=== PATIENT | male | born 2005 | race Caucasian/White ===

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

== ENCOUNTER 2025-01-16 16:11 | Emergency (ER) | payer BC, MEDICAID ==
[~2025-01-16] VITALS: Ht 167.6 cm; Wt 104.0 kg
[~2025-01-16 16:11] MED LIST changes: +CYCL-1 PO; +LIDO700A32 TD
[2025-01-16 16:21] VITALS: BP 125/69; PULSE 83; RESP 18; TEMP 97.6; O2SAT 97
[2025-01-16] MEDS ORDERED: IBUP-1984 PO (18:20)
[2025-01-16] MEDS ORDERED: DOXY100C43 PO (18:20)
--- NOTE | 2025-01-16 18:24 | Physician Documentation ---
History of Present Illness General Chief Complaint: Toe pain Stated Complaint: INGROWN R TOENAIL Time Seen by MD: 16:27 Primary Medical Doctor: Daniel [facility] History of Present Illness Initial Comments 19-year-old male who presents to the emergency department for evaluation of ingrown toenail with infection. Reports today cut his nails too short. He has a history of reoccurring infections that normally resolve on their own. He has medial and lateral ingrown toenails of the right great toe. He has a mild antalgic gait. Medication Reconciliation Allergies: Coded Allergies: No Known Allergies (Unverified , 07/05/24) Scheduled Cyclobenzaprine* (Cyclobenzaprine*), 1 TAB PO HS Lidocaine (Lidoderm), 1 PATCH TD DAILY Scheduled PRN Hydrocodone/Acetaminophen (Ada 5-325 Tablet), 1 TAB PO Q4H PRN for moderate pain 4-6 Miscellaneous Medications Home Med List (No Home Medications), (Reported) Past Medical History Past Medical History: No Pertinent History Past Surgical History: noncontributory Alcohol Use: None Drug Use: none Lives with: Family Lives In: Home Review of Systems All Other Systems at this time: Reviewed and Negative Constitutional: Denies: fever, chills Musculoskeletal Right great toenail ingrown Physical Exam Physical Exam Vital Signs: RN Vital Signs have been reviewed: Yes, Temperature: 97.6, Source: Temporal, Heart Rate: 83, Respiratory Rate: 18, BP: 125/69, Pulse Oximetry: 97, Weight: 104.050 Oxygen Flow Rate: 0 General Appearance: alert, WD/WN, mild distress Head: normal inspection Face: normal inspection Pupils/EOM/Fundus: PERRLA Neck: non-tender Respiratory: no respiratory distress Chest: no accessory muscle use Extremities: other (Right great medial and lateral nail inflammation, erythema swelling) Neurologic: oriented x4 Motor / Sensory: no motor deficit, no sensory deficit Psychiatric: normal mood/affect Skin: normal color, warm/dry Lymphatic: no adenopathy Progress Results/Orders Results/Orders Vital Signs 01/16/25 16:21 Temp 97.6 Pulse 83 Resp 18 B/P (MAP) 125/69 Pulse Ox 97 O2 Flow Rate 0 Medical Decision Making Differential Diagnosis 19-year-old male who has reoccurring right great ingrown toenail infections. He has never had antibiotic coverage. Reports that normally the inflammation infections resolve on their own. Patient has medial and lateral nail periodic use. Plan is to begin antibiotics for 10 days and anti-inflammatory medicine. That is to be followed up with a medial 3rd nail removal. With the nail was grown back to full with again then the lateral edge. Patient understands that this can be managed electively outpatient. Also understands that if symptoms worsen he does not have resolution of the inflammatory infectious process with antibiotics he is to return to the emergency department for removal of the nail. Departure Disposition: 04 [facility] Impression: Primary Impression: Paronychia of toe of right foot due to ingrown toenail Condition: Stable Discharge Instructions: Ingrown Toenail, Paronychia, [id number] Referrals: NO PRIMARY CARE PROVIDER (PCP) Prescriptions Ibuprofen* (Motrin*) 400 Mg Tablet 400 MG PO Q6H for 10 Days, #30 TAB Prov: HALEY LA 01/16/25 Doxycycline Monohydrate (Doxycycline Monohydrate) 100 Mg Capsule 100 MG PO BID, #20 CAP may sub doxycycline hyclate or azithromycin z-pack as prescribed Prov: HALEY LA 01/16/25 Education Educated: Patient Educated regarding: diagnosis, treatment Signature Scribe Signature: . Attestation: . HALEY LA Jan 16, 2025 18:24
== END 2025-01-16 18:49 ==
LOC: ER 16:12
DX: L03.031 Cellulitis of right toe (principal); Z79.899 Other long term (current) drug therapy
CPT/HCPCS: 99283